=== PATIENT | male | born 1960 ===

== ENCOUNTER → 2017-07-01 | Outpatient (CLI) | payer OTHER ==
--- NOTE | 2017-07-02 12:53 | EEG ---
DATE OF EE07/01/17 REASON FOR TESTING: Syncope. DESCRIPTION OF THE PROCEDURE: This EEG was performed using a 21 channel digital electroencephalograph, following international 10-20 system. DESCRIPTION OF THE RECORDING: From the beginning of the tracing, with the patient's eyes closed, the background rhythm was mostly consisting of 10-11 Hz alpha frequency in the posterior occipital leads. No obvious asymmetry is seen. Photic stimulation was performed with a good driving response seen. No pathological waves were elicited. Hyperventilation was performed with a minimal ( ) amplitude seen. Again, no pathological waves were elicited. Occasional movement artifacts are seen. The patient remains awake throughout the tracing. No epileptiform discharges were seen. His EKG lead showed a regular rate and rhythm. INTERPRETATION: This awake EEG can be considered within normal limits. There is no asymmetry seen. No epileptiform discharges were noticed. The absence of epileptiform discharges does not rule out the diagnosis of epilepsy. Therefore, clinical correlation is recommended. MTDD
== END | disposition home or self-care (01) ==
LOC: NEUROMAIN 09:24
PROVIDERS: ATTEND Internal Medicine
DX: R55 Syncope and collapse (principal)
CPT/HCPCS: 95816

== ENCOUNTER → 2017-07-12 | Outpatient (CLI) | payer OTHER | END | disposition home or self-care (01) | LOC: RADECHMAIN 11:42 | PROVIDERS: ATTEND Internal Medicine | DX: R55 Syncope and collapse (principal) | CPT/HCPCS: 93225; 93226 ==

== ENCOUNTER → 2017-07-20 | Outpatient (CLI) | payer OTHER ==
--- NOTE | 2017-07-20 10:10 | MR ---
EXAMINATION TYPE: MR brain wo/w con DATE OF EXAM: 07/20/2017 COMPARISON: CT brain 11/26/2016 HISTORY: syncope, headaches TECHNIQUE: Multiplanar, multisequence images of the brain and brainstem is performed without and with IV contras t, utilizing 10 mL intravenous Gadavist . FINDINGS: Diffusion weighted images demonstrate no evidence of a recent infarct or other diffusion ab normality. There is no extra-axial fluid collection or significant white matter signal abnormality. The ventricular system and cisternal spaces are normal in size and appearance. The brain volume is age appropriate. Midline structures demonstrate normal morphology. The craniocervical junction appears within normal limits. Post contrast images demonstrate no abnormal enhancement. The dural venous sinuses appear pa tent. Changes of mild chronic sinusitis noted. Partially empty sella turcica. WHITE MATTER: There are approximately 9 areas of abnormal signal within the white matter scattered bi laterally which are nonspecific. No lesions perpendicular to the ventricular system. No callosal lesi ons. No enhancing lesions. Largest lesion measures approximately 5 mm in the right parietal white IMPRESSION: 1. Nonspecific white matter changes. Differential diagnosis migraine headaches, hypertension, demyeli nating process or remote microvascular ischemia correlate clinically.
== END | disposition home or self-care (01) ==
LOC: RADMRIMAIN 09:13
PROVIDERS: ATTEND Internal Medicine
DX: R90.82 White matter disease, unspecified (principal)
CPT/HCPCS: 70553; A9581

== ENCOUNTER → 2017-08-08 | Outpatient (CLI) | payer OTHER ==
--- NOTE | 2017-08-08 10:37 | US ---
EXAMINATION TYPE: US carotid duplex BILAT DATE OF EXAM: 08/08/2017 COMPARISON: US 2016 CLINICAL HISTORY: R55 Syncope; Episodes x 2; on thyroid medication EXAM MEASUREMENTS: RIGHT: Peak Systolic Velocity (PSV) cm/sec ----- Right CCA: 104.4 ----- Right ICA: 102.3 ----- Right ECA: 190.7 ICA/CCA ratio: 1.0 RIGHT: End Diastole cm/sec ----- Right CCA: 29.3 ----- Right ICA: 25.9 ----- Right ECA: 27.1 LEFT: Peak Systolic Velocity (PSV) cm/sec ----- Left CCA: 127.1 ----- Left ICA: 107.0 ----- Left ECA: 99.2 ICA/CCA ratio: 0.8 LEFT: End Diastole cm/sec ----- Left CCA: 39.8 ----- Left ICA: 33.2 ----- Left ECA: 25.4 VERTEBRALS (direction of flow): Right Vertebral: Antegrade Left Vertebral: Antegrade Abnormally elevated PSV is noted in Right ECA proximal and mid with intimal wall changes. Intimal wal l changes are imaged at bilateral carotid bifurcation with Left CCA Distal PSV approaching abnormal v alues without significant wall plaque. IMPRESSION: Bilateral peak systolic velocities approaching abnormal values, which may relate to under lying hypertension as there is only mild archer scale atherosclerotic plaquing within the carotid bulbs and ostia of the right external carotid artery. Right external carotid artery stenosis of approximat leighton 50% is also present.
== END | disposition home or self-care (01) ==
LOC: RADUSWWP 09:44
PROVIDERS: ATTEND Internal Medicine
DX: I65.21 Occlusion and stenosis of right carotid artery (principal); I70.201 Unspecified atherosclerosis of native arteries of extremities, right leg
CPT/HCPCS: 93880

== ENCOUNTER 2020-09-23 10:18 | Day surgery (SDC) | payer OTHER ==
[2020-09-19 10:36] VITALS: BMI 33.0
[~2020-09-23 10:18] MED LIST: LACTATED RINGERS 1,000 ML IV SCH; LIDOCAINE 1% (10MG/ML) FOR IV START INTRADERMA PRN
[2020-09-23 10:35] VITALS: RESP 16; TEMP 97.3
[2020-09-23] MEDS ORDERED: PROPOFOL 10 MG/ML 20 ML VIAL IV ONE (11:30)
[2020-09-23] MEDS ORDERED: LIDOCAINE 1% INJ 10MG/ML (20 ML MDV) ONE (11:30)
--- NOTE | 2020-09-23 11:37 | P.GSHP ---
History of Present Illness H&P Date: 09/23/20 Chief Complaint: Colon cancer screening Patient here today for colonoscopy. Last colonoscopy 5-6 years ago. Patient states he has had 2-3 colonoscopies in the past. History of polyps unknown type. No family history of colon cancer. No bowel complaints. Past Medical History Past Medical History: Hyperlipidemia, Hypertension, Thyroid Disorder Additional Past Medical History / Comment(s): Hx. of CYSTS TO SCALP AND BACK History of Any Multi-Drug Resistant Organisms: None Reported Additional Past Surgical History / Comment(s): CYST REMOVED FROM NECK and scalp. Colonoscopy. Past Anesthesia/Blood Transfusion Reactions: No Reported Reaction Additional Past Anesthesia/Blood Transfusion Reaction / Comment(s): Anxiety with hospital setting. Smoking Status: Never smoker - Past Family History Mother Family Medical History: No Reported History Medications and Allergies Home Medications Medication Instructions Recorded Confirmed Type Levothyroxine Sodium [Synthroid] 50 mcg PO QAM 05/22/15 09/19/20 History Atorvastatin [Lipitor] 40 mg PO HS 11/26/16 09/19/20 History Acetaminophen Tab [Tylenol] 650 mg PO Q6HR PRN #0 tab 11/27/16 09/19/20 Rx lisinopriL [Zestril] 5 mg PO DAILY #30 tab 11/27/16 09/19/20 Rx Allergies Allergy/AdvReac Type Severity Reaction Status Date / Time No Known Allergies Allergy Verified 09/23/20 10:31 Surgical - Exam Vital Signs Temp Pulse Resp BP Pulse Ox 97.3 F L 80 16 129/80 97 09/23/20 10:34 09/23/20 10:34 09/23/20 10:34 09/23/20 10:34 09/23/20 10:34 Physical exam: General: Well-developed, well-nourished HEENT: Normocephalic, sclerae nonicteric Abdomen: Nontender, nondistended Extremities: No edema Neuro: Alert and oriented Assessment and Plan (1) Colon cancer screening Narrative/Plan: Will proceed with colonoscopy at this time Current Visit: Yes Status: Acute Code(s): Z12.11 - ENCOUNTER FOR SCREENING FOR MALIGNANT NEOPLASM OF COLON SNOMED Code(s): 669628355
--- NOTE | 2020-09-23 11:48 | P.PCN ---
Date of Procedure: 09/23/20 Procedure(s) Performed: PREOPERATIVE DIAGNOSIS: Colon cancer screening, history of polyps POSTOPERATIVE DIAGNOSIS: Sigmoid colon polyp PROCEDURE: Colonoscopy with snare polypectomy ANESTHESIA: MAC SURGEON: Pako Cox M.D. SPECIMENS: Sigmoid polyp ENDOSCOPIC PROCEDURE: The patient was placed on the endoscopy table in the left decubitus position. The Olympus colonoscope was inserted into the anus and passed under direct visualization to the base of the cecum. The appendiceal orifice was visualized. From that point the scope was slowly withdrawn inspecting all surfaces carefully. There were no neoplastic inflammatory or polypoid lesions throughout the cecum, ascending, transverse, and descending colon. In the sigmoid a small polyp was seen and removed using the snare with cautery technique. The remainder of the sigmoid and rectum appeared normal. There was no visible diverticulosis. Digital rectal examination was normal. The patient was taken to the recovery room in stable condition per anesthesia guidelines. RECOMMENDATIONS: Await biopsy results. Follow colonoscopy 5 years.
[2020-09-23 12:18] VITALS: BP 122/79; PULSE 67
[2020-09-23] MEDS ORDERED: ONDANSETRON 4 MG/2 ML VIAL IVP PRN (20:02)
[2020-09-23] MEDS ORDERED: fentaNYL (PF) 50 MCG/ML 2 ML AMP IV PRN (20:02)
[2020-09-23] MEDS ORDERED: MIDAZOLAM 2 MG/2 ML VIAL IV PRN (20:02)
[2020-09-23] MEDS ORDERED: LACTATED RINGERS 1,000 ML IV SCH (20:15)
== END 2020-09-23 12:36 | disposition home or self-care (01) ==
LOC: ORWHC2ENDO 10:18
PROVIDERS: ATTEND Surgery
DX: Z12.11 Encounter for screening for malignant neoplasm of colon (principal); K63.5 Polyp of colon; Z86.010 Personal history of colon polyps; E78.5 Hyperlipidemia, unspecified; I10 Essential (primary) hypertension; E07.9 Disorder of thyroid, unspecified; Z87.2 Personal history of diseases of the skin and subcutaneous tissue; Z98.890 Other specified postprocedural states; Z87.898 Personal history of other specified conditions; Z79.890 Hormone replacement therapy; Z79.899 Other long term (current) drug therapy
CPT/HCPCS: 88305; 45385; J2001; J2704

== ENCOUNTER → 2025-02-22 | Outpatient (CLI) | payer OTHER ==
--- NOTE | 2025-02-22 08:22 | US ---
EXAMINATION TYPE: US carotid duplex BILAT DATE OF EXAM: 02/22/2025 COMPARISON: NONE CLINICAL INDICATION: Male, 64 years old with history of I25.10 ATHEROSCLEROSIS CORON ART I65.23 STEN OSIS; stenosis Additional History: .... TECHNIQUE: Grayscale, color Doppler and spectral Doppler evaluation of the bilateral carotid systems and vertebral arteries. Indirect Doppler criteria was utilized. FINDINGS: EXAM MEASUREMENTS: RIGHT: Peak Systolic Velocity (PSV) cm/sec ----- Right CCA: 101 ----- Right ICA: 117 ----- Right ECA: 133 ICA/CCA ratio: 1.2 RIGHT: End Diastole cm/sec ----- Right CCA: 25.3 ----- Right ICA: 28.4 ----- Right ECA: 25.3 LEFT: Peak Systolic Velocity (PSV) cm/sec ----- Left CCA: 112 ----- Left ICA: 83.6 ----- Left ECA: 91 ICA/CCA ratio: 0.7 LEFT: End Diastole cm/sec ----- Left CCA: 35.3 ----- Left ICA: 29.5 ----- Left ECA: 18.9 VERTEBRALS (direction of flow): Right Vertebral: Antegrade Left Vertebral: Antegrade Rhythm: Normal ASSURANCE AUDITOR NOTES: Mild peripheral plaque left carotid bulb No significant stenosis seen Color Doppler imaging shows patency with blood flow throughout the carotid artery. Spectral waveforms are within normal limits. IMPRESSION: Persistent increased peak systolic velocity bilateral common carotid arteries raises con cern for underlying uncontrolled hypertension. Correlate clinically. Right: No hemodynamically significant stenosis. Left: No hemodynamically significant stenosis. Criteria for Assigning % of Stenosis / Diameter reduction (Estimation based on the indirect measurements of the internal carotid artery velocities (ICA PSV). 1. Normal (no stenosis)=ICA PSV < 125 cm/s: ratio < 2.0: ICA EDV<40 cm/s. 2. Less than 50% stenosis=ICA PSV < 125 cm/s: ratio < 2.0: ICA EDV<40 cm/s. 3. 50 to 69% stenosis=ICA PSV of 125 to 230 cm/s: ration 2.0 ? 4.0: ICA EDV 40-100 cm/s. 4. Greater than 70% stenosis to near occlusion= ICA PSV > 230 cm/s: ratio > 4.0: ICA EDV > 100 cm/s. 5. Near occlusion= ICA PSV velocities may be low or undetectable: variable ratio and ICA EDV. 6. Total occlusion=unable to detect flow. [facility], , 02/22/2025 8:19 AM
--- NOTE | 2025-02-22 11:11 | CA ---
Transthoracic Echo Report Name: Hadley Aviles Age: 64 Gender: M : 1960 Exam Date: 02/22/2025 08:31 Exam Location: [facility] Ht (in): 70 Wt (lb): 230 Ordering Physician: Luis Nice MD Attending/Referring Phys: Cuff Turner Machine Operator Magy Sainz RDCS Procedure CPT: Indications: I25.10 ATEROSCLEROSIS CORON ART I65.23 STENOSIS Cardiac Hx: Technical Quality: Fair Contrast 1: Total Dose (mL): Contrast 2: Total Dose (mL): MEASUREMENTS (Male / Female) Normal Values 2D ECHO LV Diastolic Diameter PLAX 5.3 cm 4.2 - 5.9 / 3.9 - 5.3 cm LV Systolic Diameter PLAX 3.6 cm IVS Diastolic Thickness 1.1 cm 0.6 - 1.0 / 0.6 - 0.9 cm LVPW Diastolic Thickness 1.2 cm 0.6 - 1.0 / 0.6 - 0.9 cm LV Relative Wall Thickness 0.4 RV Internal Dim ED PLAX 4.4 cm LVOT Diameter 2.2 cm LV Diastolic Volume MOD BP 116.3 cm??? 67 - 155 / 56 - 104 cm??? LV Systolic Volume MOD BP 72.6 cm??? 22 - 58 / 19 - 49 cm??? LV Ejection Fraction MOD BP 37.6 % >= 55 % LV Cardiac Index MOD BP 1290.5 cm???/min???m??? LV Diastolic Volume MOD 4C 123.5 cm??? LV Systolic Volume MOD 4C 77.1 cm??? LV Ejection Fraction MOD 4C 37.5 % LV Cardiac Index MOD 4C 1367.6 cm???/min???m??? LV Diastolic Length 4C 8.1 cm LV Systolic Length 4C 7.6 cm LV Diastolic Volume MOD 2C 106.1 cm??? LV Systolic Volume MOD 2C 67.0 cm??? LV Ejection Fraction MOD 2C 36.8 % LV Cardiac Index MOD 2C 1153.1 cm???/min???m??? LV Diastolic Length 2C 7.8 cm LV Systolic Length 2C 7.4 cm LA Volume 47.9 cm??? 18 - 58 / 22 - 52 cm??? LA Volume Index 20.8 cm???/m??? 16 - 28 cm???/m??? DOPPLER LVOT Peak Velocity 96.6 cm/s LVOT Peak Gradient 3.7 mmHg LVOT Velocity Time Integral 22.2 cm LVOT Stroke Volume 86.6 cm??? LVOT Stroke Volume Index 39.1 ml/m??? LVOT Cardiac Index 2556.9 cm???/min???m??? MV Area PHT 5.9 cm??? Mitral E Point Velocity 68.5 cm/s Mitral A Point Velocity 70.3 cm/s Mitral E to A Ratio 1.0 MV Deceleration Time 127.9 ms FINDINGS Left Ventricle Mildly increased left ventricular wall thickness. Left ventricular cavity size normal. Normal left ventricular systolic function with no obvious regional wall motion abnormalities. Left ventricular ejection fraction is estimated at 55 %. Right Ventricle Normal right ventricular size and function. Right ventricular systolic pressure within normal limits. Right Atrium Normal right atrial size. Left Atrium Normal left atrial size. Mitral Valve Structurally normal mitral valve. Mild mitral regurgitation. Aortic Valve Trileaflet aortic valve. No aortic valve stenosis or regurgitation. Tricuspid Valve Structurally normal tricuspid valve. Mild tricuspid regurgitation. Pulmonic Valve Structurally normal pulmonic valve. Trace to mild pulmonic regurgitation. Pericardium No pericardial effusion. Aorta Normal size aortic root and proximal ascending aorta. CONCLUSIONS Normal LV function Mild mitral and tricuspid regurgitation Previewed by: Dr. Maynor Keane MD (Electronically Signed) Final Date: 22 February 2025 11:10
--- NOTE | 2025-02-22 12:53 | NM ---
EXAMINATION TYPE: NM stress cardiolite complete DATE OF EXAM: 02/22/2025 COMPARISON: Prior nuclear medicine study December 31, 2022 CLINICAL INDICATION: Male, 64 years old with history of I25.10 ATHEROSCLEROSIS CORON ART I65.23 STEN OSIS; history of hypertension and hypercholesteremia. TECHNIQUE: After the intravenous administration of 9.55 mCi Tc 99m Sestamibi - Rest images obtained 45 minutes post injection. The patient exercised using a GLENN protocol and 1 minute prior to peak exercise was injected with 24.6 mCi Tc 99m Sestamibi - Stress images obtained 45 minutes post injecti on. FINDINGS: Targeted heart rate was achieved during performance of the study. Review of stress and rest SPECT colt ges demonstrates no distinct perfusion abnormality. Gated analysis shows normal wall motion with an estimated left ventricular ejection fraction of 62 %. IMPRESSION: No scintigraphic evidence for reversible ischemia [facility], , 02/22/2025 12:51 PM
--- NOTE | 2025-02-22 13:16 | CA ---
Exercise Nuclear Stress Test Report Name: Hadley Aviles Exam Date: 02/22/2025 10:01 Exam Location: [place] [facility] Ht (in): 70 Wt (lb): 230 BSA: 2.22 Ordering Phys: Luis Kaur MD Referring Phys: LUIS KAUR Technologist: ARACELI Age: 64 Gender: M : 1960 Procedure CPT: Indications: I25.10 ATEROSCLEROSIS CORON ART I65.23 STENOSIS ICD-10 Codes: Patient History: Hypertension, ASCAD Medications: Meds past 24 hrs: Pretest Chest Pain: STRESS TEST Shalom Protocol Exercise Duration (min:sec): 08:[address] Depressions (mm): Angina Score: Ortez Score: Resting HR (bpm): 69 Peak HR (bpm): 150 Resting BP (mmHg): 136 / 85 Peak BP (mmHg): 175 / 69 MPHR: 158 Target HR: 134 % MPHR: 95 METS: 10.3 Total Dose: Peak Dose: Atropine: Double Product: 27854 BP Response: Stress Termination: TARGET HR REACHED/MAX EXERTION Stress Symptoms: NO SYMPTOMS Stress Summary: ECG ANALYSIS Resting ECG: Normal sinus rhythm normal axis normal intervals Stress ECG: Patient exercised on Shalom protocol for 8 minutes achieving 85% of predicted maximal heart rate without chest pain or diagnostic ST segment depression CONCLUSIONS Good exercise tolerance Negative stress test by EKG criteria Dr. Maynor Keane MD (Electronically Signed) Final Date: 22 February 2025 13:16
== END | disposition home or self-care (01) ==
LOC: RADUSWWP 07:46
PROVIDERS: ATTEND Internal Medicine
DX: I25.10 Atherosclerotic heart disease of native coronary artery without angina pectoris (principal); I65.23 Occlusion and stenosis of bilateral carotid arteries; I08.1 Rheumatic disorders of both mitral and tricuspid valves; I10 Essential (primary) hypertension
CPT/HCPCS: 93017; 93306; 93880; 78452; A9500

== ENCOUNTER 2025-06-11 10:37 | Day surgery (SDC) | payer OTHER ==
[2025-06-10 13:33] VITALS: BMI 32.3
[2025-06-11] MEDS: IV FLUID CONTINUATION 1,000 ML IV ONE (11:14)
[2025-06-11] MEDS: LACTATED RINGERS 1,000 ML IV SCH (11:15)
[2025-06-11] MEDS ORDERED: PROPOFOL 10 MG/ML 20 ML VIAL IV ONE (11:16)
[2025-06-11 11:20] VITALS: TEMP 97
--- NOTE | 2025-06-11 11:28 | P.GSHP ---
History of Present Illness H&P Date: 06/11/25 Chief Complaint: Colon cancer screening 65-year-old male here for colonoscopy. Last colonoscopy 5 years ago. Patient has history of colon polyp. Biopsy shows inflammatory polyp. No bowel complaints. No family history of colon cancer. Past Medical History Past Medical History: Cancer, Hyperlipidemia, Hypertension, Thyroid Disorder Additional Past Medical History / Comment(s): Hx. of CYSTS TO SCALP AND BACK. HX MELANOMA History of Any Multi-Drug Resistant Organisms: None Reported Additional Past Surgical History / Comment(s): CYST REMOVED FROM NECK and scalp. Colonoscopy., REMOVAL OF MELANOMA FROM STOMACH AREA (20 STICHES) Past Anesthesia/Blood Transfusion Reactions: No Reported Reaction Additional Past Anesthesia/Blood Transfusion Reaction / Comment(s): Anxiety with hospital setting. Smoking Status: Never smoker - Past Family History Mother Family Medical History: No Reported History Medications and Allergies Home Medications Medication Instructions Recorded Confirmed Type Levothyroxine Sodium [Synthroid] 50 mcg PO QAM 05/22/15 06/11/25 History lisinopriL [Zestril] 5 mg PO DAILY #30 tab 11/27/16 06/11/25 Rx Rosuvastatin Calcium 10 mg PO DAILY 06/10/25 06/11/25 History Allergies Allergy/AdvReac Type Severity Reaction Status Date / Time No Known Allergies Allergy Verified 06/11/25 11:01 Surgical - Exam Vital Signs Temp Pulse Resp BP Pulse Ox 97.0 F L 72 18 128/76 97 06/11/25 11:10 06/11/25 11:10 06/11/25 11:10 06/11/25 11:10 06/11/25 11:10 Physical exam: General: Well-developed, well-nourished HEENT: Normocephalic, sclerae nonicteric Abdomen: Nontender, nondistended Extremities: No edema Neuro: Alert and oriented Assessment and Plan (1) Colon cancer screening Narrative/Plan: Will proceed with colonoscopy at this time. Current Visit: No Status: Acute Code(s): Z12.11 - ENCOUNTER FOR SCREENING FOR MALIGNANT NEOPLASM OF COLON SNOMED Code(s): 477537013
--- NOTE | 2025-06-11 11:43 | P.PCN ---
Date of Procedure: 06/11/25 Procedure(s) Performed: PREOPERATIVE DIAGNOSIS: Colon cancer screening with history of inflammatory polyp POSTOPERATIVE DIAGNOSIS: Ascending colon and ascending colon polyps PROCEDURE: Colonoscopy with snare polypectomy ANESTHESIA: MAC SURGEON: Pako oCx M.D. SPECIMENS: Polyps ENDOSCOPIC PROCEDURE: The patient was placed on the endoscopy table in the left decubitus position. The Olympus colonoscope was inserted into the anus and passed under direct visualization to the base of the cecum. The appendiceal orifice was visualized. From that point the scope was slowly withdrawn inspecting all surfaces carefully. There were no neoplastic inflammatory or polypoid lesions throughout the cecum. In the ascending colon a small polyp was seen and removed using the snare with cautery technique. The remainder of the transverse colon was normal. In the descending colon another small polyp was seen and removed in a similar fashion. The remainder of the descending sigmoid and rectum was normal. The patient had no visible diverticulosis. Digital rectal examination was normal. The patient was taken to the recovery room in stable condition per anesthesia guidelines. RECOMMENDATIONS: Await biopsy results. Anticipate repeat colonoscopy 5 years. Will call with timing.
[2025-06-11 12:08] VITALS: BP 141/83; PULSE 68; RESP 14
== END 2025-06-11 12:27 | disposition home or self-care (01) ==
LOC: ORWHC2ENDO 10:37
PROVIDERS: ATTEND Surgery
DX: Z12.11 Encounter for screening for malignant neoplasm of colon (principal); D12.2 Benign neoplasm of ascending colon; E78.5 Hyperlipidemia, unspecified; E07.9 Disorder of thyroid, unspecified; I10 Essential (primary) hypertension; Q85.9 Phakomatosis, unspecified; Z85.820 Personal history of malignant melanoma of skin; Z79.890 Hormone replacement therapy; Z79.899 Other long term (current) drug therapy
CPT/HCPCS: 88305; 45385; J2704